=== PATIENT | male | born 1950 | race Caucasian/White ===

== ENCOUNTER → 2018-05-15 17:11 | Outpatient (CLI) | payer MEDICARE, OTHER, SELFPAY ==
--- NOTE | 2018-05-20 09:25 | PM.PFT.1 ---
Pulmonary Function Test Referral & Results Date Patient Seen: 05/15/18 Requesting provider: Kati Chu Results: The spirometry demonstrates an FVC of 2.51 L which is 44% of predicted. The FEV1 was measured at 1.44 L which is 34% of predicted. The FEV1/FVC ratio was 57 which is 77% of predicted. Following the administration of bronchodilator there was a 26% improvement in FEF 25-75%. Lung volumes show an SVC of 2.76 L which is 49% of predicted. No diffusing capacity was performed The maximum voluntary ventilation was reduced. Interpretation: This study demonstrates severe obstructive lung disease with only limited evidence of benefit following bronchodilator administration, primarily in small airway flow based on improvement in FEF 25-75% There is also moderately severe restrictive lung disease present. Compared to PFTs performed in January of 2018, current study is essentially unchanged. At that time diffusing capacity was 70% predicted.
== END ==
PROVIDERS: PCP Family Medicine; Visit Provider Internal Medicine Critical Care Medicine
DX: J44.9 Chronic obstructive pulmonary disease, unspecified (principal)
CPT/HCPCS: 94010; 94060